=== PATIENT | female | born 1980 | race Caucasian/White ===

== ENCOUNTER → 2017-06-30 | Outpatient (CLI) | payer OTHER ==
--- NOTE | 2017-06-30 20:53 | Diagnostic Imaging Report ---
Bilateral diagnostic mammogram with tomography. INDICATION: Palpable lump in the upper-outer aspect of the left breast. The current study was also evaluated with a Computer Aided Detection (CAD) system. COMPARISON: No prior studies are available for comparison. FINDINGS: The breasts are composed of heterogeneously dense parenchyma which may decrease mammographic sensitivity. The palpable lump in the left breast upper-outer aspect appears to correlate with a benign-appearing fat-containing lesion that has smooth margins compatible with an oil cyst. In the right breast laterally on the exaggerated CC projection, there is an oval asymmetry seen measuring about 9 mm. When focal compression views are performed, this is persistent with no definitive underlying lesion. IMPRESSION: 1. The palpable lump in the upper-outer aspect of the left breast appears to correlate with an oil cyst. 2. Indeterminate asymmetry along the lateral aspect of the right breast. 3. Bilateral ultrasound evaluation is pending. ACR BI-RADS Category 0: Incomplete. (Needs additional imaging evaluation). Result letter will be mailed to the patient. Note: At least 10% of breast cancer is not imaged by mammography. Dictated by: Dictated on workstation # [id number]
--- NOTE | 2017-06-30 22:10 | Diagnostic Imaging Report ---
EXAM: Bilateral breast ultrasound. INDICATION: At the upper outer aspect of the left breast there is an asymmetry along the lateral aspect of the right breast. FINDINGS: In the left breast the palpable lump site at 1:00 o'clock zone 3 cm from the nipple, there is a cystic structure measuring 1.2 cm. The ultrasound appearance is of a simple cyst. However based on mammography it has internal fat density and is compatible with an oil cyst. No suspicious lesion is seen. The asymmetry seen along the outer aspect of the right breast appears to correlate with a lesion at the 10:00 o'clock zone, 8 cm from the nipple measuring 0.9 x 0.5 x 0.7 cm with hypoechoic lobulated appearance. This is in favor of benign etiology such as fibroadenoma. IMPRESSION: 1. The palpable lump at the left breast, outer aspect, is an oil cyst. 2. 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 A six-month followup right breast mammogram and ultrasound is recommended to prove stability. BI-RADS 3. ACR BI-RADS Category 3: Probably benign findings. Result letter will be mailed to the patient. Note: At least 10% of breast cancer is not imaged by mammography. Dictated by: Dictated on workstation # [id number]
== END ==
LOC: RAD 08:29
PROVIDERS: ATTEND Nurse Practitioner Family
DX: N63 Unspecified lump in breast (principal)
CPT/HCPCS: 76642; 77066